=== PATIENT | male | born 1960 | race Caucasian/White ===

== ENCOUNTER 2018-12-28 07:21 | Outpatient (CLI) | payer OTHER ==
[~2018-12-28 07:21] MED LIST: DICLOFENAC SODI50 MG PO
== END 2018-12-28 07:23 | disposition home or self-care (01) ==
LOC: SONOGRAMA 07:21
DX: R22.1 Localized swelling, mass and lump, neck (principal)

== ENCOUNTER 2019-04-11 16:07 | Outpatient (CLI) | payer OTHER | END 2019-04-11 16:15 | disposition home or self-care (01) | LOC: LAB 16:07 | DX: C09.9 Malignant neoplasm of tonsil, unspecified (principal) ==

== ENCOUNTER 2019-04-12 10:50 | Outpatient (CLI) | payer OTHER | END 2019-04-12 11:04 | disposition home or self-care (01) | LOC: MRI 10:50 | DX: C09.0 Malignant neoplasm of tonsillar fossa (principal) | CPT/HCPCS: 70543 ==